=== PATIENT | female | born 1955 | race Hispanic/Latino ===

== ENCOUNTER → 2018-07-12 | Day surgery (SDC) | payer MEDICARE ==
[2018-07-06 15:09] LABS: BASOPHILS # (AUTO) 0.1 (0.0-0.1); BASOPHILS % 0.8 % (0.0-1.0); EOSINOPHILS # (AUTO) 0.2 (0.0-0.4); EOSINOPHILS % 3.4 % (0.0-6.0); HEMATOCRIT 37.9 % (34.2-44.1); HEMOGLOBIN 12.6 g/dL (12.0-16.0); LYMPHOCYTES # (AUTO) 1.9 (1.0-3.2); LYMPHOCYTES % 29.9 % (18.0-39.1); MEAN CORPUSCULAR HEMOGLOBIN 28.5 pg (28-32); MEAN CORPUSCULAR HGB CONC 33.2 g/dL (31-35); MEAN CORPUSCULAR VOLUME 85.7 fL (81-99); MONOCYTES # (AUTO) 0.6 (0.2-0.8); MONOCYTES % 8.8 % (4.4-11.3); NEUTROPHILS # (AUTO) 3.6 (2.1-6.9); NEUTROPHILS % 56.9 % (38.7-80.0); PLATELET COUNT 243 x10e3/uL (140-360); RED BLOOD COUNT 4.42 x10e6/uL (3.6-5.1)
[~2018-07-12] MED LIST: ALBUTEROL S5 MG/1 ML INH; ALENDRONATE SOD70 MG PO; ASPIR 8181 MG PO; FENTANYL CITRATE/PF 100MCG/2 ML INJ ONE; LOSARTAN POTAS100 MG PO; MIDAZOLAM HCL 2 MG/2 ML VIAL ONE; MONTELUKAST SOD10 MG PO; NAPROXEN500 M1 PO; PROPOFOL IV EMULSION 10 MG/ML 20 ML VIAL IV ONE; SERTRALINE HCL100 MG PO
--- OUTSIDE RECORDS SUMMARY | 2018-07-12 09:28 | XMS REPORT | Clinical Summary ---
Author Author [place] [facility] Organization [place] [facility] Address Unknown Phone Unavailable Care Team Providers Care Book Author Name Role Phone Simon Byrd MD PCP Allergies Comments Active Allergy Reactions Severity Noted Date Clarithromycin Rash Low 12/04/2017 Chocolate Flavor Rash Low 12/04/2017 Penicillins Rash Low 12/04/2017 Pork Derived (Porcine) Rash Low 12/04/2017 Sulfa (Sulfonamide Rash Low 12/04/2017 Antibiotics) Medications End Date Status Medication Sig Dispensed Refills Start Date Active donepezil (ARICEPT) 10 MG Take 10 mg by 0 tablet mouth nightly. Active naproxen (NAPROSYN) 500 Take 500 mg 0 MG tablet by mouth 2 (two) times a day with meals. Active aspirin (ECOTRIN) 81 MG Take 81 mg by 0 enteric coated tablet mouth daily. Active losartan (COZAAR) 50 MG Take 50 mg by 0 tablet mouth daily. Active montelukast (SINGULAIR) Take 10 mg by 0 10 mg tablet mouth nightly. Active sertraline (ZOLOFT) 100 Take 100 mg 0 MG tablet by mouth daily. 12/12/2017 ciprofloxacin (CIPRO) 500 Take 1 tablet 10 tablet 0 12/07/201 MG tablet (500 mg 8 total) by mouth 2 (two) times a day for 5 days. Active Problems Problem Noted Date Numbness 12/05/2017 Encounters Care Team Description Date Type Specialty Priscilla Wilson RN 12/07/2017 Patient Quality Outreach Blanco Brothers MD Bavare, Arusha Amod, MD Berberian, Esteban N., MD Numbness (Primary Dx); Chest pain, unspecified type 12/04/2017 Emergency General Internal Medicine - 12/07/2017 after 07/11/2017 Social History Date Tobacco Use Types Packs/Day Years Used Never Smoker Smokeless Tobacco: Never Used Alcohol Use Drinks/Week oz/Week Comments No Sex Assigned at Date Recorded Not on file Industry Job Start Date Occupation Not on file Not on file Not on file Travel End Travel History Travel Start No recent travel history available. Last Filed Vital Signs Time Taken Vital Sign Reading 12/07/2017 11:13 AM CDT Blood Pressure 122/80 12/07/2017 11:13 AM CDT Pulse 69 12/07/2017 11:13 AM CDT Temperature 36.4 C (97.5 F) 12/07/2017 11:13 AM CDT Respiratory Rate 18 12/07/2017 11:13 AM CDT Oxygen Saturation 94% - Inhaled Oxygen - Concentration 12/04/2017 9:07 PM CDT Weight 77.1 kg (170 lb) 12/04/2017 9:07 PM CDT Height 167.6 cm (5' 6") 12/04/2017 9:07 PM CDT Body Mass Index 27.44 Plan of Treatment Health Maintenance Due Date Last Done Comments CERVICAL CANCER SCREENING 1976 BREAST CANCER SCREENING 2005 COLON CANCER SCREENING 2005 SHINGLES VACCINES (1 of 2005 2) INFLUENZA VACCINE 01/10/2018 02/20/2017 Procedures Comments Procedure Name Priority Date/Time Associated Diagnosis MRI LUMBAR SPINE WO Routine 12/06/2017 CONTRAST 9:47 AM CDT MRI THORACIC SPINE WO Routine 12/06/2017 CONTRAST 9:25 AM CDT TROPONIN Timed 12/05/2017 1:12 PM CDT MRI IAC W WO CONTRAST Routine 12/05/2017 1:05 PM CDT MRI CERVICAL SPINE WO Routine 12/05/2017 CONTRAST 12:14 PM CDT ECG 12-LEAD Routine 12/05/2017 9:57 AM CDT TROPONIN Timed 12/05/2017 9:26 AM CDT TROPONIN Timed 12/05/2017 4:58 AM CDT ECG 12-LEAD Routine 12/05/2017 4:[address] ANGIOGRAM CHEST STAT 12/05/2017 ABDOMEN PELVIS W AND OR 1:07 AM CDT WITHOUT CONTRAST CT HEAD WO CONTRAST STAT 12/05/2017 12:49 AM CDT B NATRIURETIC PEPTIDE STAT 12/04/2017 11:30 PM CDT ZZESTIMATED GFR STAT 12/04/2017 11:30 PM CDT TROPONIN STAT 12/04/2017 11:30 PM CDT BASIC METABOLIC PANEL STAT 12/04/2017 11:30 PM CDT HC COMPLETE BLD COUNT STAT 12/04/2017 W/AUTO DIFF 11:30 PM CDT XR CHEST 1 VW PORTABLE STAT 12/04/2017 10:09 PM CDT ECG ED PRELIMINARY Routine 12/04/2017 INTERPRETATION 9:37 PM CDT ECG 12-LEAD STAT 12/04/2017 9:10 PM CDT after 07/11/2017 Results * MRI Lumbar Spine Wo Contrast (12/06/2017 9:47 AM CDT) Narrative Performed At EXAMINATION: MRI LUMBAR SPINE WO CONTRAST [facility] CLINICAL HISTORY: Lower back pain COMPARISON:None TECHNIQUE: Multiplanar multisequence noncontrast enhanced examination was performed of the Lumbar spine. FINDINGS: There is decreased T2 signal intensity in the lumbar discs from L2-3 to L5-S1. There are degenerative changes of the upper sacroiliac joints. L5-S1: There is severe disc space narrowing with surrounding endplate degenerative change. There is minimal dorsal spondylosis. There are facet hypertrophic changes.There is no significant central canal stenosis. There is severe right and mild to moderate left foramen stenosis with asymmetric spondylosis in the inferior right foramen and extraforaminal region. There is extraforaminal spondylosis near the nerves greater on the right. There is a small fluid signal intensity structure on the sagittal T2 images in the region of the right S1 nerve root in the proximal foramen, consistent with a perineural cyst or diverticulum, meningocele or pseudomeningocele. L4-5: There is severe disc space narrowing with surrounding endplate degenerative change and Schmorl's nodes. There is dorsal spondylosis with minimal narrowing of the anterior canal. There is facet hypertrophy greater on the left with left posterolateral indentation on the subarachnoid space and mild mass effect on the posterior left nerve roots. There is moderate foramen stenosis. L3-4: There is moderate posterior disc space narrowing. There is minimal retrolisthesis with uncovered disc and bulge indenting the anterior subarachnoid space. There are facet hypertrophic changes. There is no significant central canal stenosis. There is mild posterolateral indentation on the subarachnoid space, greater on the left. There is mild foramen narrowing. L2-3:There is moderate disc space narrowing with surrounding endplate degenerative changes and multiple Schmorl's nodes. There is an incidental hemangioma in the left L3 vertebral body. There is facet hypertrophy. There is no significant central canal stenosis. There is mild foramen stenosis in part congenital in nature. L1-2: There is greater posterior disc space narrowing.There is mild bulge and facet hypertrophy. The distal cord ends at the L1-2 level and is grossly unremarkable on the sagittal images. There is nonspecific mild dilatation of the right renal pelvis and upper ureter without definite focal obstruction seen on this exam. The study was not performed for proper imaging of the soft tissue structures in the abdomen and pelvis. IMPRESSION: Degenerative changes with foramen stenosis most prominent on the right at the L5-S1 level. Extraforaminal spondylosis extending into both nerves at the L5-S1 level, greater on the right. Degenerative changes of the sacroiliac joints. Small perineural cyst or diverticulum, meningocele or pseudomeningocele in the region of the right S1 nerve root in the proximal foramen seen only on the sagittal T2 images. [id number] Procedure Note Hm Interface, Radiology Results Incoming - 12/06/2017 10:22 AM CDT EXAMINATION: MRI LUMBAR SPINE WO CONTRAST CLINICAL HISTORY: Lower back pain COMPARISON: None TECHNIQUE: Multiplanar multisequence noncontrast enhanced examination was performed of the Lumbar spine. FINDINGS: There is decreased T2 signal intensity in the lumbar discs from L2-3 to L5-S1. There are degenerative changes of the upper sacroiliac joints. L5-S1: There is severe disc space narrowing with surrounding endplate degenerative change. There is minimal dorsal spondylosis. There are facet hypertrophic changes. There is no significant central canal stenosis. There is severe right and mild to moderate left foramen stenosis with asymmetric spondylosis in the inferior right foramen and extraforaminal region. There is extraforaminal spondylosis near the nerves greater on the right. There is a small fluid signal intensity structure on the sagittal T2 images in the region of the right S1 nerve root in the proximal foramen, consistent with a perineural cyst or diverticulum, meningocele or pseudomeningocele. L4-5: There is severe disc space narrowing with surrounding endplate degenerative change and Schmorl's nodes. There is dorsal spondylosis with minimal narrowing of the anterior canal. There is facet hypertrophy greater on the left with left posterolateral indentation on the subarachnoid space and mild mass effect on the posterior left nerve roots. There is moderate foramen stenosis. L3-4: There is moderate posterior disc space narrowing. There is minimal retrolisthesis with uncovered disc and bulge indenting the anterior subarachnoid space. There are facet hypertrophic changes. There is no significant central canal stenosis. There is mild posterolateral indentation on the subarachnoid space, greater on the left. There is mild foramen narrowing. L2-3: There is moderate disc space narrowing with surrounding endplate degenerative changes and multiple Schmorl's nodes. There is an incidental hemangioma in the left L3 vertebral body. There is facet hypertrophy. There is no significant central canal stenosis. There is mild foramen stenosis in part congenital in nature. L1-2: There is greater posterior disc space narrowing. There is mild bulge and facet hypertrophy. The distal cord ends at the L1-2 level and is grossly unremarkable on the sagittal images. There is nonspecific mild dilatation of the right renal pelvis and upper ureter without definite focal obstruction seen on this exam. The study was not performed for proper imaging of the soft tissue structures in the abdomen and pelvis. IMPRESSION: Degenerative changes with foramen stenosis most prominent on the right at the L5-S1 level. Extraforaminal spondylosis extending into both nerves at the L5-S1 level, greater on the right. Degenerative changes of the sacroiliac joints. Small perineural cyst or diverticulum, meningocele or pseudomeningocele in the region of the right S1 nerve root in the proximal foramen seen only on the sagittal T2 images. [id number] Performing Organization Address City/State/Zipcode Phone Number [facility] [address] [place] [address] * MRI Thoracic Spine Wo Contrast (12/06/2017 9:25 AM CDT) Narrative Performed At EXAMINATION:MRI THORACIC SPINE WO CONTRAST [facility] CLINICAL HISTORY:Ataxia COMPARISON:None. Sagittal and axial images of the thoracic spine were obtained. FINDINGS: There is mild endplate Modic type I edema changes noted at T6-T7 and T7-T8 noted anteriorly. There is no acute wedging deformity or fracture. There is no spondylolisthesis. A Schmorl's node mild edema is noted anteriorly at T12 as well. No aggressive osseous lesions identified. The spinal cord is intact. It has normal morphology without expansion or compression. There is no cord signal change identified. There is no canal narrowing. There is no posterior spondylosis or canal stenosis. Aorta is nonaneurysmal. A small 12 mm cyst is noted in the posterior inferior aspect of the liver. Sagittal imaging shows preservation of the perineural fat throughout the thoracic spine without foraminal stenosis. IMPRESSION: There are mild endplate changes of the thoracic spine from disc disease without significant posterior spondylosis or stenosis. The canal and foramina remain widely patent. Thoracic alignment is normal without acute fracture or spondylolisthesis. No abnormality identified to explain patient's ataxia. [id number] Procedure Note Hm Interface, Radiology Results [facility] - 12/06/2017 10:10 AM CDT EXAMINATION: MRI THORACIC SPINE WO CONTRAST CLINICAL HISTORY: Ataxia COMPARISON: None. Sagittal and axial images of the thoracic spine were obtained. FINDINGS: There is mild endplate Modic type I edema changes noted at T6-T7 and T7-T8 noted anteriorly. There is no acute wedging deformity or fracture. There is no spondylolisthesis. A Schmorl's node mild edema is noted anteriorly at T12 as well. No aggressive osseous lesions identified. The spinal cord is intact. It has normal morphology without expansion or compression. There is no cord signal change identified. There is no canal narrowing. There is no posterior spondylosis or canal stenosis. Aorta is nonaneurysmal. A small 12 mm cyst is noted in the posterior inferior aspect of the liver. Sagittal imaging shows preservation of the perineural fat throughout the thoracic spine without foraminal stenosis. IMPRESSION: There are mild endplate changes of the thoracic spine from disc disease without significant posterior spondylosis or stenosis. The canal and foramina remain widely patent. Thoracic alignment is normal without acute fracture or spondylolisthesis. No abnormality identified to explain patient's ataxia. [id number] Performing Organization Address City/State/Zipcode Phone Number [facility] [address] [place] [address] * Troponin (12/05/2017 1:12 PM CDT) Only the most recent of 4 results within the time period is included. Troponin <0.30 0.00 - 0.30 ng/mL [facility] OF Comment: PATHOLOGY AND 0.11 - 1.49 GENOMIC MEDICINE ng/mlMay indicate increased risk of acute coronary syndrome. >=1.5 ng/ml Consistent with acute myocardial infarction. The diagnostic value of a single normal or non-diagnostic result is questionable.Serial samples at 2-6 hour intervals are required to rule out acute myocardial injury. Specimen Plasma specimen Performing Organization Address City/State/Zipcode Phone Number [facility] OF [address] [place] [address] PATHOLOGY AND GENOMIC MEDICINE * MRI IAC W Wo Contrast (12/05/2017 1:05 PM CDT) Narrative Performed At [facility] EXAMINATION: MRI IAC W WO CONTRAST CLINICAL HISTORY: Vertigo COMPARISON:CT head same date. TECHNIQUE: Multiplanar and multisequence MRI imaging of the brain and internal auditory canals was obtained with and without contrast. FINDINGS: No evidence of acute intracranial hemorrhage, mass, mass effect, acute infarct or midline shift. High-resolution imaging of the internal auditory canals demonstrates no evidence of mass, abnormal signal, or pathologic enhancement. Unremarkable MRI appearance of the inner ear structures. Ventricles and sulci are normal in appearance for age. Few nonspecific subcortical and periventricular white matter T2 FLAIR hyperintensities, within normal limits for age. No abnormal intracranial enhancement.Basal cisterns are clear. Major intracranial flow voids are maintained. Orbits are normal in appearance. Small bilateral mastoid effusions. Minimal sinus inflammatory changes. IMPRESSION: 1. No acute intracranial abnormality. 2. Normal appearance of the internal auditory canals. [id number] Procedure Note Interface, Radiology Results Incoming - 12/05/2017 1:21 PM CDT EXAMINATION: MRI IAC W WO CONTRAST CLINICAL HISTORY: Vertigo COMPARISON: CT head same date. TECHNIQUE: Multiplanar and multisequence MRI imaging of the brain and internal auditory canals was obtained with and without contrast. FINDINGS: No evidence of acute intracranial hemorrhage, mass, mass effect, acute infarct or midline shift. High-resolution imaging of the internal auditory canals demonstrates no evidence of mass, abnormal signal, or pathologic enhancement. Unremarkable MRI appearance of the inner ear structures. Ventricles and sulci are normal in appearance for age. Few nonspecific subcortical and periventricular white matter T2 FLAIR hyperintensities, within normal limits for age. No abnormal intracranial enhancement. Basal cisterns are clear. Major intracranial flow voids are maintained. Orbits are normal in appearance. Small bilateral mastoid effusions. Minimal sinus inflammatory changes. IMPRESSION: 1. No acute intracranial abnormality. 2. Normal appearance of the internal auditory canals. [id number] Performing Organization Address City/State/Zipcode Phone Number [facility] [address] [place] [address] * MRI Cervical Spine Wo Contrast (12/05/2017 12:14 PM CDT) Narrative Performed At EXAMINATION: MRI CERVICAL SPINE WO CONTRAST [facility] CLINICAL HISTORY: C-spine stenosis COMPARISON:None TECHNIQUE: Multiplanar multisequence noncontrast enhanced examination was performed of the cervical spine. FINDINGS: No fracture. 1 to 2 mm anterolisthesis C7 on T1 and T1 on T2, degenerative. No suspicious osseous lesion. Severe disc height loss C5-6 and C6-7, with moderate disc height loss and C3-4 and C4-5, with and Schmorl's nodes and small endplate osteophytes. The cervicomedullary junction is normal in appearance. No spinal cord signal abnormality. No prevertebral edema or neck mass identified. Axial images through the disc spaces demonstrate the following: C1-C2: Degenerative changes atlantodental articulation without significant spinal canal stenosis. C2-C3: Disc desiccation. No significant spinal canal or neural foraminal stenosis. C3-C4: Mild right and moderate to severe left neural foraminal stenosis secondary to uncovertebral and facet arthropathy. Mild spinal canal stenosis secondary to uncovertebral osteophytes and minimal disc bulge. C4-C5: Mild right neural foraminal stenosis secondary to uncovertebral and facet arthropathy. No significant left neural foraminal stenosis. Mild spinal canal stenosis secondary to uncovertebral osteophytes and minimal disc bulge. C5-C6: Severe left neural foraminal stenosis secondary to uncovertebral and facet arthropathy. No significant right neural foraminal stenosis. Mild spinal canal stenosis secondary to uncovertebral osteophytes. C6-C7: Severe left and moderate right neural foraminal stenosis secondary to uncovertebral and facet arthropathy. There is mild spinal canal stenosis secondary to uncovertebral osteophytes. C7-T1: Mild to moderate facet arthropathy without significant spinal canal or neural foraminal stenosis. IMPRESSION: 1. Multilevel mild spinal canal and moderate or severe neural foraminal stenosis, notably at C3-4, C5-6, and C6-7. Additional multilevel degenerative changes as above. [id number] Procedure Note [facility], Radiology Results Incoming - 12/05/2017 1:50 PM CDT EXAMINATION: MRI CERVICAL SPINE WO CONTRAST CLINICAL HISTORY: C-spine stenosis COMPARISON: None TECHNIQUE: Multiplanar multisequence noncontrast enhanced examination was performed of the cervical spine. FINDINGS: No fracture. 1 to 2 mm anterolisthesis C7 on T1 and T1 on T2, degenerative. No suspicious osseous lesion. Severe disc height loss C5-6 and C6- 7, with moderate disc height loss and C3-4 and C4-5, with and Schmorl's nodes and small endplate osteophytes. The cervicomedullary junction is normal in appearance. No spinal cord signal abnormality. No prevertebral edema or neck mass identified. Axial images through the disc spaces demonstrate the following: C1-C2: Degenerative changes atlantodental articulation without significant spinal canal stenosis. C2-C3: Disc desiccation. No significant spinal canal or neural foraminal stenosis. C3-C4: Mild right and moderate to severe left neural foraminal stenosis secondary to uncovertebral and facet arthropathy. Mild spinal canal stenosis secondary to uncovertebral osteophytes and minimal disc bulge. C4-C5: Mild right neural foraminal stenosis secondary to uncovertebral and facet arthropathy. No significant left neural foraminal stenosis. Mild spinal canal stenosis secondary to uncovertebral osteophytes and minimal disc bulge. C5-C6: Severe left neural foraminal stenosis secondary to uncovertebral and facet arthropathy. No significant right neural foraminal stenosis. Mild spinal canal stenosis secondary to uncovertebral osteophytes. C6-C7: Severe left and moderate right neural foraminal stenosis secondary to uncovertebral and facet arthropathy. There is mild spinal canal stenosis secondary to uncovertebral osteophytes. C7-T1: Mild to moderate facet arthropathy without significant spinal canal or neural foraminal stenosis. IMPRESSION: 1. Multilevel mild spinal canal and moderate or severe neural foraminal stenosis, notably at C3-4, C5-6, and C6-7. Additional multilevel degenerative changes as above. [facility]-[id number] Performing Organization Address [facility] Phone Number [facility] [address] [place] [address] * ECG 12 lead (12/05/2017 9:57 AM CDT) Only the most recent of 3 results within the time period is included. Ventricular rate 55 [facility] Atrial rate 55 [facility] ID interval 158 [facility] QRSD interval 90 [facility] QT interval 446 [facility] QTC interval 426 [facility] P axis 1 41 [facility] QRS axis 1 46 [facility] T wave axis 46 [facility] EKG impression Sinus bradycardia-Otherwise [facility] normal ECG-In automated comparison with ECG of 05-DEC-2017 04:06,-No significant change was found- Performing Organization Address [facility] Phone Number [facility] [address] [place] [address] * CT Angiogram Chest W Contrast Abdomen W Contrast Pelvis W Contrast (12/05/2017 1:07 AM CDT) Narrative Performed At EXAMINATION:CT ANGIOGRAM CHEST ABDOMEN PELVIS W AND OR WITHOUT CONTRAST [facility] CLINICAL HISTORY:chest pain with L side numbness eval dissection TECHNIQUE: Multiple CT angiographic images of the chest, abdomen, and pelvis were obtained during intravenous administration of contrast. Multiple computerized reformatted images as well as 3-D volume rendered images were also obtained. CT scans are performed using radiation dose reduction techniques (iterative reconstruction and/or automated exposure control). Technical factors are evaluated and adjusted to ensure appropriate moderation of exposure. Automated dose management technology is applied to adjust radiation exposure while achieving a diagnostic quality image. COMPARISON:None. FINDINGS: CTA: No aortic aneurysm or dissection. Ascending aorta measures 3.4 cm in diameter. Mid aortic arch measures 2.7 cm in diameter. Proximal descending thoracic aorta measures 2.5 cm. Distal descending thoracic aorta measures 2.4 cm. Aorta measures 2.5 cm at the level of the diaphragmatic hiatus. Abdominal aorta measures 1.9 cm at the level of the main renal arteries. Distal abdominal aorta measures 1.4 cm. Right common iliac artery measures 1.0 cm. Left common iliac artery measures 0.9 cm. Left-sided aortic arch with normal branching pattern. [place] of the supra aortic vessels appear widely patent. [place] of the celiac axis, superior mesenteric artery, bilateral main renal arteries, and inferior mesenteric artery are widely patent. Single bilateral main renal arteries are noted. Mild calcific atherosclerosis of the abdominal aorta. Main pulmonary artery measures 3.0 cm in diameter. No pulmonary emboli within proximal pulmonary arteries. CHEST: Lungs and large airways: Dependent subsegmental atelectasis/scarring. No focal or confluent airspace consolidation. Pleura:No pleural effusion, pleural thickening, or pneumothorax. Heart and pericardium:Heart size is normal. No pericardial effusion. Mediastinum and marizol:No mass or hematoma. Lymph nodes:No pathological adenopathy in the marizol, axilla or mediastinum. Chest wall: Bilateral breast implants are present. Bones:Severe degenerative changes at the right glenohumeral joint. Mild degenerative changes of the thoracic spine. ABDOMEN/PELVIS: Liver:Multiple cysts measure up to 2.4 cm in the left hepatic lobe. Gallbladder and biliary:Gallbladder is unremarkable. Common bile duct is not dilated. Pancreas:Normal. Spleen:Normal. Gastrointestinal:Large and small bowel are normal in caliber. Appendix is visualized and appears normal. Adrenals:Normal. Kidneys and ureters:0.9 cm cyst at the midpole of the left kidney. [No follow-up recommended unless clinically warranted.] No mass or hydronephrosis. Urinary bladder:Normal. Lymph nodes:No enlarged lymph nodes in the abdomen or pelvis. Peritoneum:No ascites or free air. Reproductive organs:Uterus is absent. Unremarkable adnexae. Abdominal wall: Gluteal subcutaneous injection granulomas. Bones:Moderate degenerative changes. IMPRESSION: 1. Negative CTA for aortic dissection, aneurysm, or other acute aortic pathology. 2. Incidental findings as above. [facility]-[id number] Procedure Note [facility], Radiology Results Incoming - 12/05/2017 1:24 AM CDT EXAMINATION: CT ANGIOGRAM CHEST ABDOMEN PELVIS W AND OR WITHOUT CONTRAST CLINICAL HISTORY: chest pain with L side numbness eval dissection TECHNIQUE: Multiple CT angiographic images of the chest, abdomen, and pelvis were obtained during intravenous administration of contrast. Multiple computerized reformatted images as well as 3-D volume rendered images were also obtained. CT scans are performed using radiation dose reduction techniques (iterative reconstruction and/or automated exposure control). Technical factors are evaluated and adjusted to ensure appropriate moderation of exposure. Automated dose management technology is applied to adjust radiation exposure while achieving a diagnostic quality image. COMPARISON: None. FINDINGS: CTA: No aortic aneurysm or dissection. Ascending aorta measures 3.4 cm in diameter. Mid aortic arch measures 2.7 cm in diameter. Proximal descending thoracic aorta measures 2.5 cm. Distal descending thoracic aorta measures 2.4 cm. Aorta measures 2.5 cm at the level of the diaphragmatic hiatus. Abdominal aorta measures 1.9 cm at the level of the main renal arteries. Distal abdominal aorta measures 1.4 cm. Right common iliac artery measures 1.0 cm. Left common iliac artery measures 0.9 cm. Left-sided aortic arch with normal branching pattern. [place] of the supra aortic vessels appear widely patent. [place] of the celiac axis, superior mesenteric artery, bilateral main renal arteries, and inferior mesenteric artery are widely patent. Single bilateral main renal arteries are noted. Mild calcific atherosclerosis of the abdominal aorta. Main pulmonary artery measures 3.0 cm in diameter. No pulmonary emboli within proximal pulmonary arteries. CHEST: Lungs and large airways: Dependent subsegmental atelectasis/scarring. No focal or confluent airspace consolidation. Pleura: No pleural effusion, pleural thickening, or pneumothorax. Heart and pericardium: Heart size is normal. No pericardial effusion. Mediastinum and marizol: No mass or hematoma. Lymph nodes: No pathological adenopathy in the marizol, axilla or mediastinum. Chest wall: Bilateral breast implants are present. Bones: Severe degenerative changes at the right glenohumeral joint. Mild degenerative changes of the thoracic spine. ABDOMEN/PELVIS: Liver: Multiple cysts measure up to 2.4 cm in the left hepatic lobe. Gallbladder and biliary: Gallbladder is unremarkable. Common bile duct is not dilated. Pancreas: Normal. Spleen: Normal. Gastrointestinal: Large and small bowel are normal in caliber. Appendix is visualized and appears normal. Adrenals: Normal. Kidneys and ureters: 0.9 cm cyst at the midpole of the left kidney. [No follow- up recommended unless clinically warranted.] No mass or hydronephrosis. Urinary bladder: Normal. Lymph nodes: No enlarged lymph nodes in the abdomen or pelvis. Peritoneum: No ascites or free air. Reproductive organs: Uterus is absent. Unremarkable adnexae. Abdominal wall: Gluteal subcutaneous injection granulomas. Bones: Moderate degenerative changes. IMPRESSION: 1. Negative CTA for aortic dissection, aneurysm, or other acute aortic pathology. 2. Incidental findings as above. [facility]-[id number] Performing Organization Address City/State/Zipcode Phone Number [facility] [address] [place] [address] * CT Head Wo Contrast (12/05/2017 12:49 AM CDT) Narrative Performed At EXAM: [facility]ICAL [facility]: L side numbness x 24 hours TECHNIQUE: Noncontrast enhanced images of the brain were obtained from the skull base to the vertex. Both soft tissue and bone reconstruction algorithms were performed. CT scans are performed using radiation dose reduction techniques (iterative reconstruction and/or automated exposure control). Technical factors are evaluated and adjusted to ensure appropriate moderation of exposure. Automated dose management technology is applied to adjust radiation exposure while achieving a diagnostic quality image. COMPARISON:None. FINDINGS: The veloz-white matter differentiation is preserved and without evidence of acute territorial infarction. There is no evidence for acute intracranial hemorrhage, mass, mass effect, hydrocephalus, or extra-axial fluid collection. Orbits are unremarkable.Paranasal sinuses are clear.Mastoid air cells are normally pneumatized.Osseous structures are intact. IMPRESSION: No CT evidence for acute intracranial abnormality. [facility]-[id number] Procedure Note Interface, Radiology Results Incoming - 12/05/2017 12:57 AM CDT EXAM: CT HEAD WO CONTRAST CLINICAL HISTORY: L side numbness x 24 hours TECHNIQUE: Noncontrast enhanced images of the brain were obtained from the skull base to the vertex. Both soft tissue and bone reconstruction algorithms were performed. CT scans are performed using radiation dose reduction techniques (iterative reconstruction and/or automated exposure control). Technical factors are evaluated and adjusted to ensure appropriate moderation of exposure. Automated dose management technology is applied to adjust radiation exposure while achieving a diagnostic quality image. COMPARISON: None. FINDINGS: The veloz-white matter differentiation is preserved and without evidence of acute territorial infarction. There is no evidence for acute intracranial hemorrhage, mass, mass effect, hydrocephalus, or extra-axial fluid collection. Orbits are unremarkable. Paranasal sinuses are clear. Mastoid air cells are normally pneumatized. Osseous structures are intact. IMPRESSION: No CT evidence for acute intracranial abnormality. [facility]-[id number] Performing Organization Address City/State/Zipcode Phone Number [facility] [address] [place] [address] * Estimated GFR (12/04/2017 11:30 PM CDT) GFR Non Af Amer >90 mL/min/1.73 m2 [facility] DEPART[place] OF PATHOLOGY AND GENOMIC MEDICINE GFR Af Amer >90 mL/min/1.73 m2 [facility] DEPARTMENT OF Comment: PATHOLOGY AND Chronic kidney disease: <60 GENOMIC MEDICINE mL/min/1.73m2 Kidney failure: <15 mL/min/1.73m2 The estimated GFR is calculated from the IDMS-traceable Modification of Diet in Renal Disease Equation. The accuracy of the calculation is poor when the creatinine is normal. Calculated values >90 mL/min/1.73m2 are not reported. This equation has not been validated in children (<18 years), women, the elderly (>70 years), or ethnic groups other than Caucasians and Americans. Specimen Plasma specimen Performing Organization Address City/[facility]/Zipcode Phone Number [facility] [address] [place] [address] PATHOLOGY AND GENOMIC MEDICINE * CBC with platelet and differential (12/04/2017 11:30 PM CDT) WBC 7.6 4.2 - 11.0 k/uL [facility] DEPARTMENT OF PATHOLOGY AND GENOMIC MEDICINE RBC 4.02 (L) 4.04 - 5.86 m/uL [facility] DEPARTMENT OF PATHOLOGY AND GENOMIC MEDICINE HGB 11.1 (L) 11.5 - 15.3 g/dL [facility] DEPARTMENT OF PATHOLOGY AND GENOMIC MEDICINE HCT 35.3 34.0 - 45.0 % [facility] DEPARTMENT OF PATHOLOGY AND GENOMIC MEDICINE MCV 87.8 80.0 - 98.0 fL [facility] DEPARTMENT OF PATHOLOGY AND GENOMIC MEDICINE MCH 27.6 27.0 - 34.0 pg [facility] DEPARTMENT OF PATHOLOGY AND GENOMIC MEDICINE MCHC 31.4 (L) 31.5 - 36.5 g/dL [facility] DEPARTMENT OF PATHOLOGY AND GENOMIC MEDICINE RDW - SD 46.4 37.0 - 51.0 fL [facility] DEPARTMENT OF PATHOLOGY AND GENOMIC MEDICINE MPV 11.4 (H) 7.4 - 10.4 fL [facility] DEPARTMENT OF PATHOLOGY AND GENOMIC MEDICINE Platelet count 214 150 - 400 k/uL [facility] DEPARTMENT OF PATHOLOGY AND GENOMIC MEDICINE Nucleated RBC 0.00 /100 WBC [facility] DEPARTMENT OF PATHOLOGY AND GENOMIC MEDICINE Neutrophils 63.3 36.0 - 66.0 % [facility] DEPARTMENT OF PATHOLOGY AND GENOMIC MEDICINE Lymphocytes 25.8 24.0 - 44.0 % [facility] DEPARTMENT OF PATHOLOGY AND GENOMIC MEDICINE Monocytes 7.4 (H) 0.0 - 6.0 % [facility] DEPARTMENT OF PATHOLOGY AND GENOMIC MEDICINE Eosinophils 2.8 0.0 - 6.0 % [facility] DEPARTMENT OF PATHOLOGY AND GENOMIC MEDICINE Basophils 0.4 0.0 - 1.2 % [facility] DEPARTMENT OF PATHOLOGY AND GENOMIC MEDICINE Immature granulocytes 0.3 0.0 - 1.0 % [facility] DEPARTMENT OF PATHOLOGY AND GENOMIC MEDICINE Specimen Blood Performing Organization Address City/[facility] [place] [address] PATHOLOGY AND GENOMIC MEDICINE * B natriuretic peptide (12/04/2017 11:30 PM CDT) BNP 56 0 - 100 pg/mL [facility] DEPARTMENT OF PATHOLOGY AND GENOMIC MEDICINE Specimen Blood Performing Organization Address City/[facility] [place] [address] PATHOLOGY AND [employer] MEDICINE * Basic metabolic panel (12/04/2017 11:30 PM CDT) Sodium 142 135 - 150 mEq/L [facility] DEPARTMENT OF PATHOLOGY AND GENOMIC MEDICINE Potassium 4.1 3.5 - 5.0 mEq/L [facility] DEPARTMENT OF PATHOLOGY AND GENOMIC MEDICINE Chloride 105 98 - 112 mEq/L [facility] DEPARTMENT OF PATHOLOGY AND GENOMIC MEDICINE CO2 26 24 - 31 mmol/L [facility] OF PATHOLOGY AND GENOMIC MEDICINE Anion gap 11@ANIO 7 - 15 mEq/L [facility] DEPARTMENT OF PATHOLOGY AND GENOMIC MEDICINE BUN 11 7 - 18 mg/dL [facility] DEPARTMENT OF PATHOLOGY AND GENOMIC MEDICINE Creatinine 0.60 0.50 - 0.90 mg/dL [facility] DEPARTMENT OF PATHOLOGY AND GENOMIC MEDICINE Glucose 104 (H) 65 - 100 mg/dL [facility] DEPARTMENT OF PATHOLOGY AND GENOMIC MEDICINE Calcium 9.3 8.8 - 10.2 mg/dL [facility] DEPARTMENT OF PATHOLOGY AND GENOMIC MEDICINE Specimen Plasma specimen Performing Organization Address [facility] [place] [address] PATHOLOGY AND GENOMIC MEDICINE * XR Chest 1 Vw Portable (12/04/2017 10:09 PM CDT) Narrative Performed At Examination: XR CHEST 1 VW PORTABLE [facility] Clinical history: Chest Pain Comparison: None Impression: 1. The heart and pulmonary vasculature are within normal limits. 2. No infiltrate or effusion is demonstrated. The lungs are hyperinflated. 3. There is no acute osseous pathology. Sclerosis and degeneration about the right glenohumeral joint is incompletely imaged. Please correlate with the patient's history. 4. If suspicion persists, follow-up nonportable PA and lateral imaging may be helpful. [facility]-[id number] Procedure Note Hm Interface, Radiology Results Incoming - 12/04/2017 10:15 PM CDT Examination: XR CHEST 1 VW PORTABLE Clinical history: Chest Pain Comparison: None Impression: 1. The heart and pulmonary vasculature are within normal limits. 2. No infiltrate or effusion is demonstrated. The lungs are hyperinflated. 3. There is no acute osseous pathology. Sclerosis and degeneration about the right glenohumeral joint is incompletely imaged. Please correlate with the patient's history. 4. If suspicion persists, follow-up nonportable PA and lateral imaging may be helpful. [facility]-[id number] Performing Organization Address City/State/Zipcode Phone Number [facility] [address] [place] [address] * ECG ED Preliminary Interpretation - NOT AN ORDER (12/04/2017 9:37 PM CDT) Narrative Performed At [employer] MD 12/05/20175:40 AM ECG ED Preliminary Interpretation - Not an Order Performed by: BLANCO BROTHERS Authorized by: BLANCO BROTHERS ECG reviewed by ED Physician in the absence of a engineer intern: yes Interpretation: Interpretation: normal Rate: ECG rate:60 ECG rate assessment: normal Rhythm: Rhythm: sinus rhythm Ectopy: Ectopy: none QRS: QRS axis:Normal QRS intervals:Normal Conduction: Conduction: normal ST segments: ST segments:Normal T waves: T waves: normal after 07/11/2017 Insurance Payer Benefit Subscriber ID Type Phone Address Plan / Group [employer] C[employer] xxxxxxxxxxx O [employer] HMO MCR ADV Advance Directives Patient has advance care planning documents, and code status on file. For more i nformation, please contact: Salvador Gramajo [address] [place] [address] Date Inactivated Comments Code Status Date Activated 12/07/2017 5:54 PM Full Code 12/05/2017 3:30 AM Code Status decision reached by: Patient
--- OUTSIDE RECORDS SUMMARY | 2018-07-12 09:28 | XMS REPORT | Summary of Care ---
Author Organization Unknown Address Unknown Phone Unavailable Encounter HQ Encntr_alias(FIN) [id number] Date(s): 09/26/14 - 09/26/14 [facility] Outpatient Imaging - [address] [phone] Discharge Disposition: Home Physician Attending: Leonardo Bello MD Vital Signs No data available for this section Problem List No data available for this section Allergies, Adverse Reactions, Alerts No data available for this section Medications No data available for this section Results No data available for this section Immunizations No data available for this section Procedures No data available for this section Social History No data available for this section Assessment and Plan No data available for this section
--- OUTSIDE RECORDS SUMMARY | 2018-07-12 09:28 | XMS REPORT | Continuity of Care Document ---
Author Author [facility] Interface Address Unknown Phone Unavailable Problems Problem Status Onset Date Classification Date Reported Comments Source K83.5 - BILIARY CYST Active 12/18/2017 ISIAH Aroda F HAND PAIN Active 05/30/2015 [facility] Discharge Diagnosis: Distal radius fracture, left 05/30/2015 06/02/2015 [facility] 789.04 - ABDMNAL PAIN LT Active 12/09/2011 [facility] Asthma Resolved Problem 06/02/2015 [facility] HTN - Hypertension Resolved Problem 06/02/2015 [facility] Medications Medication Details Route Status Patient Instructions Ordering Provider Order Date Source Acetaminophen 300 MG / Codeine Phosphate 30 MG Oral Tablet [Tylenol with Codeine #3] 1 - 2 tab, PO, Q4H, PRN Pain, X 3 day, # 20 tab, 0 Refill(s) Active 05/30/2015 [facility] tramadol hydrochloride 50 MG Oral Tablet 50 mg=1 tab, PO, BID, X 15 day, # 30 tab, 0 Refill(s) Active 05/30/2015 [facility] Acetaminophen 325 MG / Hydrocodone Bitartrate 5 MG Oral Tablet [[place] 5/325] 1 tab, Route: PO, Drug Form: TAB, Dosing Weight 73.636, kg, ONCE, STAT, Start date: 05/30/15 15:27:00, Stop date: 05/30/15 15:27:00Notes: (Same as: [place] 325/5) Do not exceed 4gm/day of acetaminophen. Inactive 05/30/2015 [facility] Ketamine 73.636 mg, 7.36 mL, Route: IVP, Drug form: INJ, ONCE, Dosing Weight 73.636, kg, Priority: STAT, Start date: 05/30/15 12:50:00, Stop date: 05/30/15 12:50:00Notes: Total Volume in 3mL syringe Stability 90 days Per state nursing law ketamine can only be given by a nurse if patient is intubated or being intubated (unless the nurse is a HOUSE WIRER HELPER). Inactive 05/30/2015 [facility] Propofol 73.636 mg, 7.36 mL, Route: IVP, Drug form: INJ, ONCE, Dosing Weight 73.636, kg, Priority: STAT, Start date: 05/30/15 12:50:00, Stop date: 05/30/15 12:50:00Notes: If Diprivan - change bottle & tubing every 12 hr Per state nursing law propofol can only be given by a nurse if patient is intubated or being intubated (unless the nurse is a HOUSE WIRER HELPER). Same as: Diprivan Inactive 05/30/2015 [facility] Morphine 6 mg, 0.6 mL, Route: IV, Drug form: SOLN, ONCE, Dosing Weight 73.636, kg, Start date: 05/30/15 12:14:00, Stop date: 05/30/15 12:14:00Notes: (Same as: MORPhine Sulfate) Inactive 05/30/2015 [facility] Morphine 6 mg, Route: IVP, Drug form: INJ, ONCE, Dosing Weight 73.636, kg, Priority: STAT, Start date: 05/30/15 11:57:00, Stop date: 05/30/15 11:57:00 Inactive 05/30/2015 [facility] Morphine 4 mg, 1 mL, Route: IVP, Drug form: INJ, ONCE, Dosing Weight 73.636, kg, Priority: STAT, Start date: 05/30/15 11:04:00, Stop date: 05/30/15 11:04:00Notes: (Same as:MORPhine Sulfate) Inactive 05/30/2015 [facility] Zofran 4 mg, 2 mL, Route: IVP, Drug form: INJ, ONCE, Dosing Weight 73.636, kg, Priority: STAT, Start date: 05/30/15 11:04:00, Stop date: 05/30/15 11:04:00Notes: (Same as: Zofran) MEDICATION WASTE Product Size: 4 mg Product Wasted: ___ mg Inactive 05/30/2015 [facility] Allergies, Adverse Reactions, Alerts Substance Category Reaction Severity Reaction type Status Date Reported Comments Source penicillins Assertion Drug allergy Active [facility] Vioxx Assertion Drug allergy Active [facility] Immunizations Immunization Date Given Site Status Last Updated Comments Source Results Order Name Results Value Reference Range Date Interpretation Comments Source Barium enema air contrast DX Barium enema air contrast DX Exam: Barium enema with air contrast Reason for Exam: K64.8 Other hemorrhoids - K63.5 Polyp of colon Comparison Exam: None Discussion: On chief quality officer view, there are no dilated loops of bowel or abnormal air-fluid level patterns. Air and barium were instilled into the rectum in a retrograde fashion up to the level of the cecum, as evidenced by visualization of the appendix. No obstructing or constricting lesions identified. No fixed intraluminal masses can be identified. Note that no definitive polyps can be identified. Fluoro time: 2 minutes, 48 seconds. Total exam LJD=7363 mGy-cm. Impression: 1. Unremarkable barium enema with air contrast exam. Note that no definitive polyps can be identified. 12/29/2017 - - Read by: Víctor Zaidi MD Dictated Date/time: 12/29/17 10:09 Electronically Signed by: Víctor Zaidi MD 12/29/17 10:15 FINAL REPORT [facility] ELECTROLYTES AGAP 10.3 meq/L 10.0 - 20.0 05/30/2015 [facility] ELECTROLYTES eGFR 99 mL/min/1.73m2 05/30/2015 Result Comment: The eGFR is calculated using the CKD-EPI formula. In most young, healthy individuals the eGFR will be >90 mL/min/1.73m2. The eGFR declines with age. An eGFR of 60-89 may be normal in some populations, particularly the elderly, for whom the CKD-EPI formula has not been extensively validated. Use of the eGFR is not recommended in the following populations: Individuals with unstable creatinine concentrations, including patients and those with serious co-morbid conditions. Patients with extremes in muscle mass or diet. The data above are obtained from the National Kidney Disease Education Program (NKDEP) which additionally recommends that when the eGFR is used in patients with extremes of body mass index for purposes of drug dosing, the eGFR should be multiplied by the estimated BMI. [facility] ELECTROLYTES BUN 16 mg/dL 7 - 22 05/30/2015 [facility] ELECTROLYTES Chloride Lvl 105 meq/L 95 - 109 05/30/2015 [facility] ELECTROLYTES Potassium Lvl 4.3 meq/L 3.5 - 5.1 05/30/2015 [facility] ELECTROLYTES Sodium Lvl 140 meq/L 135 - 145 05/30/2015 [facility] ELECTROLYTES Creatinine Lvl 0.61 mg/dL 0.50 - 1.40 05/30/2015 [facility] ELECTROLYTES Glucose Lvl 117 mg/dL 70 - 99 05/30/2015 [facility] ELECTROLYTES Calcium Lvl 8.5 mg/dL 8.5 - 10.5 05/30/2015 [facility] ELECTROLYTES CO2 29 meq/L 24 - 32 05/30/2015 [facility] HEMATOLOGY RDW 14.5 % 11.5 - 14.5 05/30/2015 [facility] HEMATOLOGY MCH 27.0 pg 27.0 - 31.0 05/30/2015 [facility] HEMATOLOGY MCV 84.7 fL 80.0 - 98.0 05/30/2015 [facility] HEMATOLOGY Hct 38.1 % 36.0 - 48.0 05/30/2015 [facility] HEMATOLOGY Hgb 12.1 g/dL 12.0 - 16.0 05/30/2015 [facility] HEMATOLOGY MCHC 31.9 g/dL 32.0 - 36.0 05/30/2015 [facility] HEMATOLOGY WBC 9.4 K/CMM 3.7 - 10.4 05/30/2015 [facility] HEMATOLOGY RBC 4.49 M/CMM 4.20 - 5.40 05/30/2015 [facility] HEMATOLOGY Platelet 249 K/CMM 133 - 450 05/30/2015 [facility] HEMATOLOGY MPV 9.2 fL 7.4 - 10.4 05/30/2015 [facility] HEMATOLOG[facility] Basophils 0.6 % 0.0 - 1.0 05/30/2015 [facility] HEMATOLOGY Segs-Bands # 6.7 K/CMM 1.5 - 8.1 05/30/2015 [facility] HEMATOLOGY Lymphocytes # 1.9 K/CMM 1.0 - 5.5 05/30/2015 [facility] HEMATOLOGY Monocytes 6.3 % 2.0 - 12.0 05/30/2015 [facility] HEMATOLOGY Lymphocytes 20.3 % 20.0 - 40.0 05/30/2015 [facility] HEMATOLOGY Eosinophils 1.7 % 0.0 - 4.0 05/30/2015 [facility] HEMATOLOGY Eosinophils # 0.2 K/CMM 0.0 - 0.5 05/30/2015 [facility] HEMATOLOGY Monocytes # 0.6 K/CMM 0.0 - 0.8 05/30/2015 [facility] HEMATOLOGY Basophils # 0.1 K/CMM 0.0 - 0.2 05/30/2015 [facility] HEMATOLOGY Segs 71.1 % 45.0 - 75.0 05/30/2015 [facility] Wrist 2 views DX Wrist 2 views DX NAME: KYRA KENNEDY: 1955 SEX: F Ordering Physician: Anthony Katz Wrist AP : May 30, 2015 03:55:00 PM. CLINICAL INDICATION: Post-Reduction films for a left wrist fracture COMPARISON: Left wrist x-rays dated 05/30/2015 at 11:38 a.m.. FINDINGS: Portable frontal and lateral x-rays of the left wrist were obtained following closed reduction and placement upper splint. The radiodense splint material years fine osseous detail. Note is again made of a mildly impacted distal radial intra-articular fracture and minimally displaced ulnar styloid process avulsion fracture. No other fracture or dislocation seen. If there is further concern, followup radiographs or MRI of the wrist may be performed for complete assessment. IMPRESSION: 1. Postreduction films demonstrating mildly impacted distal radial intra-articular fracture and minimally displaced comminuted ulnar styloid process avulsion fracture. SL: 05/30/2015 - - Read by: Beau Bond MD Dictated Date/time: 05/30/15 15:56 Electronically Signed by: Beau Bond MD 05/30/15 15:58 FINAL REPORT [facility] 2 views DX Hand 2 views DX NAME: KYRA KENNEDY DOB: 1955 SEX: F Ordering Physician: Steven Bran Hand AP lateral : May 30, 2015 11:58:00 AM. CLINICAL INDICATION: Pain from a fall pain after fall Comparison Examination: Left wrist radiographs from the same date. FINDINGS: 2 views of the left hand were performed. No evidence for acute fracture or dislocation of the left hand. Partially visualized comminuted, intra-articular distal radius fracture and ulnar styloid fracture. Soft tissues of the hand are unremarkable. No soft tissue gas or radiopaque foreign bodies. IMPRESSION: No evidence for acute fracture or dislocation of the left hand. SL: 05/30/2015 - - Read by: Toni Hodgson MD Dictated Date/time: 05/30/15 11:59 Electronically Signed by: Toni Hodgson MD 05/30/15 11:59 FINAL REPORT [facility] Wrist complete DX Wrist complete DX NAME: KYRA KENNEDY DOB: 1955 SEX: F Ordering Physician: Steven Bran Wrist complete ( min.3 views) : May 30, 2015 11:57:00 AM. CLINICAL INDICATION: Pain from a fall , dizziness Comparison Examination: None. FINDINGS: Three views of the left wrist demonstrate a comminuted, impacted distal radius fracture with dorsal tilt of the radial articular surface by approximately 35. There is up to 9 mm of dorsal displacement of the major fracture fragments. Mildly comminuted and displaced ulnar styloid fracture also seen. Diffuse soft tissue swelling of the wrist. IMPRESSION: Comminuted, intra-articular distal radius fracture and mildly comminuted ulnar styloid fracture. SL: 05/30/2015 - - Read by: Toni Hodgson MD Dictated Date/time: 05/30/15 11:57 Electronically Signed by: Toni Hodgson MD 05/30/15 11:58 FINAL REPORT [facility] Hip 2 views DX Hip 2 views DX NAME: KYRA KENNEDY DOB: 1955 SEX: F Ordering Physician: Steven Bran Hip min 2 views : May 30, 2015 11:05:00 AM. CLINICAL INDICATION: Pain from a fall fall after getting dizzy, left hip pain after the fall Comparison Examination: None. FINDINGS: Two views of the left hip are submitted for interpretation. No acute fracture or dislocation. No destructive osseous lesions. Normal bony alignment. Overlying soft tissues are unremarkable. If there is further concern, recommend follow-up radiographs or MRI for complete assessment. IMPRESSION: 1. No acute osseous injury of the left hip. SL: 05/30/2015 - - Read by: Toni Hodgson MD Dictated Date/time: 05/30/15 11:56 Electronically Signed by: Toni Hodgson MD 05/30/15 11:57 FINAL REPORT [facility] Elbow 3 views DX Elbow 3 views DX NAME: KYRA KENNEDY: 1955 SEX: F Ordering Physician: Steven Bran Elbow 3 views : May 30, 2015 11:57:00 AM. CLINICAL INDICATION: Pain from a fall pain after fall Comparison Examination: None. FINDINGS: Three views of the left elbow demonstrate a nondisplaced fracture of the coronoid process with associated hemarthrosis. No additional fractures. No elbow dislocation. IMPRESSION: Nondisplaced coronoid process fracture of the elbow. SL: 24 05/30/2015 - - Read by: Toni Hodgson MD Dictated Date/time: 05/30/15 11:58 Electronically Signed by: Toni Hodgson MD 05/30/15 11:58 FINAL REPORT [facility] Abdomen/Pelvis w/wo IV contrast CT Abdomen/Pelvis w/wo IV contrast CT Exam: CT Scan of the abdomen and pelvis with and without contrast Reason for Exam: Left lower quadrant abdominal pain. Blood in stool. Comparison Exam: Abdominal Ultrasound 12/12/2011 Technique: Multiple axial images were obtained of the abdomen and pelvis. 3.75mm slices were acquired before and after injection of 100 cc Omnipaque 300 IV. 50 cc Omnipaque 300 was also given as oral contrast. Reformatted sagittal and coronal images were obtained for additional diagnostic information. Total exam OIN=2622 mGy-cm. Discussion: Visualized portions of the lung bases are unremarkable. Multiple hypodensities are seen within the liver. Some represent cysts. Others are too small to characterize. Note that there were no cysts appreciated on Abdominal Ultrasound 2011. Portal venous system is patent. Gallbladder is unremarkable. No biliary duct dilation. Pancreas, spleen, and adrenal glands are within normal limits. Kidneys are unremarkable. No hydronephrosis or hydroureter. No dilated loops of bowel. The appendix is normal. Bladder is unremarkable. No appreciable lymphadenopathy or free fluid. No abnormal soft tissue mass seen within the large bowel. No acute bony abnormalities appreciated. Degenerative disc disease seen at the L4/L5 and L5/S1 levels. No evidence seen for abdominal aortic aneurysm or dissection. Impression: 1. Scattered diverticuli seen within the large bowel, without evidence to suggest acute diverticulitis. No abnormal soft tissue mass seen within the large bowel. 2. Multiple hypodensities are seen within the liver. Some represent cysts. Others are too small to characterize. 09/26/2014 - - Read by: Víctor Zaidi MD Dictated Date/time: 09/26/14 13:00 Electronically Signed by: Víctor Zaidi MD 09/26/14 13:07 FINAL REPORT [facility]IAH Juarez Vital Signs Vital Sign Value Date Comments Source Respitory Rate 18 05/30/2015 [facility] Systolic (mm Hg) 155 05/30/2015 [facility] Diastolic (mm Hg) 80 05/30/2015 [facility] Heart Rate 60 05/30/2015 [facility] Respitory Rate 18 05/30/2015 [facility] Systolic (mm Hg) 159 05/30/2015 [facility] Diastolic (mm Hg) 94 05/30/2015 [facility] Heart Rate 62 05/30/2015 [facility] Respitory Rate 18 05/30/2015 [facility] Systolic (mm Hg) 166 05/30/2015 [facility] Diastolic (mm Hg) 82 05/30/2015 [facility] Heart Rate 62 05/30/2015 [facility] Height 167.64 cm 05/30/2015 [facility] Temperature Oral (F) 98.8 F 05/30/2015 [facility] BMI Calculated 26.2 05/30/2015 [facility] Weight 73.636 05/30/2015 [facility] Encounters Location Location Details Encounter Type Encounter Number Reason For Visit Attending Provider ADM Date DC Date Status Source OD [id number] 789.04 - ABDMNAL PAIN LT ARISTEO RENE 12/12/2011 Active [facility] [id number] Leonardo Bello 09/26/2014 09/27/2014 ISIAH [facility] [id number] Anthony Katz 05/30/2015 05/30/2015 [facility] Procedures Procedure Code Date Perfomer Comments Source Hysterectomy [id number] [facility]
--- OUTSIDE RECORDS SUMMARY | 2018-07-12 09:29 | XMS REPORT | Summary of Care ---
Author Author [facility] Organization [facility] Address Unknown Phone Unavailable Encounter NELSY Sow(WAQAS) [id number] Date(s): 05/30/15 - 05/30/15 [facility] [address] [place] [address]- Discharge Diagnosis: Distal radius fracture, left Discharge Disposition: Home Attending Physician: Anthony Katz MD Vital Signs 1 2 3 Most recent to oldest [Reference Range]: 167.64 cm (05/30/15 10:56 AM) Height 98.8 DegF (05/30/15 10:56 AM) Temperature Oral [96.4-99.1 DegF] 155/80 mmHg *HI* (05/30/15 4:30 PM) 159/94 mmHg *HI* (05/30/15 4:00 PM) 166/82 mmHg *HI* (05/30/15 3:45 PM) Blood Pressure [90-140/60-90 mmHg] 18 BRMIN (05/30/15 4:30 PM) 18 BRMIN (05/30/15 4:00 PM) 18 BRMIN (05/30/15 3:45 PM) Respiratory Rate [14-20 BRMIN] 60 bpm (05/30/15 4:30 PM) 62 bpm (05/30/15 4:00 PM) 62 bpm (05/30/15 3:45 PM) Peripheral Pulse Rate [60-100 bpm] 73.636 kg (05/30/15 10:56 AM) Weight 26.2 m2 (05/30/15 10:56 AM) Body Mass Index Problem List Condition Effective Dates Status Health Status Informant Asthma(Confirmed) Resolved HTN - Resolved Hypertension(Confirm ed) Allergies, Adverse Reactions, Alerts Substance Reaction Severity Status penicillins Active Vioxx Active Medications ketAMINE 73.636 mg, 7.36 mL, Route: IVP, Drug form: INJ, ONCE, Dosing Weight 73.636, kg, Priority: STAT, Start date: 05/30/15 12:50:00, Stop date: 05/30/15 12:50:00 Notes: Total Volume in 3mL syringeStability 90 daysPer state nursing law ketamin e can only be given by a nurse if patient is intubated or being intubated (unles s the nurse is a CHIEF HUMAN RESOURCES OFFICER). Start Date: 05/30/15 Stop Date: 05/30/15 Status: Completed morphine Sulfate 4 mg, 1 mL, Route: IVP, Drug form: INJ, ONCE, Dosing Weight 73.636, kg, Priority : STAT, Start date: 05/30/15 11:04:00, Stop date: 05/30/15 11:04:00 Notes: (Same as:MORPhine Sulfate) Start Date: 05/30/15 Stop Date: 05/30/15 Status: Completed morphine Sulfate 6 mg, 0.6 mL, Route: IV, Drug form: SOLN, ONCE, Dosing Weight 73.636, kg, Start date: 05/30/15 12:14:00, Stop date: 05/30/15 12:14:00 Notes: (Same as: MORPhine Sulfate) Start Date: 05/30/15 Stop Date: 05/30/15 Status: Completed morphine Sulfate 6 mg, Route: IVP, Drug form: INJ, ONCE, Dosing Weight 73.636, kg, Priority: STAT , Start date: 05/30/15 11:57:00, Stop date: 05/30/15 11:57:00 Start Date: 05/30/15 Stop Date: 05/30/15 Status: Discontinued [place] 5/325 oral tablet 1 tab, Route: PO, Drug Form: TAB, Dosing Weight 73.636, kg, ONCE, STAT, Start da te: 05/30/15 15:27:00, Stop date: 05/30/15 15:27:00 Notes: (Same as: [place] 325/5) Do not exceed 4gm/day of acetaminophen. Start Date: 05/30/15 Stop Date: 05/30/15 Status: Completed propofol 73.636 mg, 7.36 mL, Route: IVP, Drug form: INJ, ONCE, Dosing Weight 73.636, kg, Priority: STAT, Start date: 05/30/15 12:50:00, Stop date: 05/30/15 12:50:00 Notes: If Diprivan - change bottle & tubing every 12 hrPer state nursing law propofol can only be given by a nurse if patient is intubated or being intubated (unless the nurse is a CHIEF HUMAN RESOURCES OFFICER). Same as: Diprivan Start Date: 05/30/15 Stop Date: 05/30/15 Status: Completed tramadol 50 mg oral tablet 50 mg=1 tab, PO, BID, X 15 day, # 30 tab, 0 Refill(s) Start Date: 05/30/15 Stop Date: 06/14/15 Status: Ordered Tylenol with Codeine #3 oral tablet 1 - 2 tab, PO, Q4H, PRN Pain, X 3 day, # 20 tab, 0 Refill(s) Start Date: 05/30/15 Stop Date: 06/02/15 Status: Ordered Zofran 4 mg, 2 mL, Route: IVP, Drug form: INJ, ONCE, Dosing Weight 73.636, kg, Priority : STAT, Start date: 05/30/15 11:04:00, Stop date: 05/30/15 11:04:00 Notes: (Same as: Zofran) MEDICATION WASTE Product Size: 4 mgProduct Was ming: ___ mg Start Date: 05/30/15 Stop Date: 05/30/15 Status: Completed Results ELECTROLYTES Most recent to 1 oldest [Reference Range]: Sodium Lvl [135-145 140 mEq/L mEq/L] (05/30/15 11:16 AM) Potassium Lvl 4.3 mEq/L [3.5-5.1 mEq/L] (05/30/15 11:16 AM) Chloride Lvl [95-109 105 mEq/L mEq/L] (05/30/15 11:16 AM) CO2 [24-32 mEq/L] 29 mEq/L (05/30/15 11:16 AM) AGAP [10.0-20.0 10.3 mEq/L mEq/L] (05/30/15 11:16 AM) CHEM PANEL Most recent to 1 oldest [Reference Range]: Creatinine Lvl 0.61 mg/dL [0.50-1.40 mg/dL] (05/30/15 11:16 AM) eGFR 99 mL/min/1.73m2 1 *NA* (05/30/15:16 AM) BUN [7-22 mg/dL] 16 mg/dL (05/30/15 11:16 AM) Glucose Lvl [70-99 117 mg/dL mg/dL] *HI* (05/30/15 11:16 AM) Calcium Lvl 8.5 mg/dL [8.5-10.5 mg/dL] (05/30/15 11:16 AM) 1Result Comment: The eGFR is calculated using the [...] from the National Kidney Disease Education Program ( NKDEP) which additionally recommends that when the eGFR is used in patients with extremes of body mass index for purposes of drug dosing, the eGFR should be mul tiplied by the estimated BMI. HEMATOLOGY Most recent to 1 oldest [Reference Range]: WBC [3.7-10.4 K/CMM] 9.4 K/CMM (05/30/15 11:16 AM) RBC [4.20-5.40 4.49 M/CMM M/CMM] (05/30/15 11:16 AM) Hgb [12.0-16.0 g/dL] 12.1 g/dL (05/30/15 11:16 AM) Hct [36.0-48.0 %] 38.1 % (05/30/15:16 AM) MCV [80.0-98.0 fL] 84.7 fL (05/30/15 11:16 AM) MCH [27.0-31.0 pg] 27.0 pg (05/30/15 11:16 AM) MCHC [32.0-36.0 31.9 g/dL g/dL] *LOW* (12/19/15 11:16 AM) RDW [11.5-14.5 %] 14.5 % (05/30/15 11:16 AM) Platelet [133-450 249 K/CMM K/CMM] (05/30/15 11:16 AM) MPV [7.4-10.4 fL] 9.2 fL (05/30/15 11:16 AM) Segs [45.0-75.0 %] 71.1 % (05/30/15 11:16 AM) Lymphocytes 20.3 % [20.0-40.0 %] (05/30/15 11:16 AM) Monocytes [2.0-12.0 6.3 % %] (05/30/15 11:16 AM) Eosinophils [0.0-4.0 1.7 % %] (05/30/15 11:16 AM) Basophils [0.0-1.0 0.6 % %] (05/30/15 11:16 AM) Segs-Bands # 6.7 K/CMM [1.5-8.1 K/CMM] (05/30/15 11:16 AM) Lymphocytes # 1.9 K/CMM [1.0-5.5 K/CMM] (05/30/15 11:16 AM) Monocytes # [0.0-0.8 0.6 K/CMM K/CMM] (05/30/15 11:16 AM) Eosinophils # 0.2 K/CMM [0.0-0.5 K/CMM] (05/30/15 11:16 AM) Basophils # [0.0-0.2 0.1 K/CMM K/CMM] (05/30/15 11:16 AM) Immunizations No data available for this section Procedures Procedure Date Related Diagnosis Body Site Hysterectomy Social History Social History Type Response Smoking Status Never smoker; Exposure to Tobacco Smoke None; Cigarette Smoking Last 365 Days No; Reg Smoking Cessation Counseling No Assessment and Plan No data available for this section
[2018-07-12 12:30] VITALS: BP 121/74
== END | disposition home or self-care (01) ==
LOC: OR 09:26
PROVIDERS: ATTEND Internal Medicine
DX: K58.9 Irritable bowel syndrome, unspecified (principal); K64.0 First degree hemorrhoids; I69.319 Unspecified symptoms and signs involving cognitive functions following cerebral infarction; I10 Essential (primary) hypertension; J45.909 Unspecified asthma, uncomplicated; Z88.0 Allergy status to penicillin; Z88.2 Allergy status to sulfonamides; Z88.6 Allergy status to analgesic agent; Z88.8 Allergy status to other drugs, medicaments and biological substances; Z01.810 Encounter for preprocedural cardiovascular examination; Z01.812 Encounter for preprocedural laboratory examination; Z79.82 Long term (current) use of aspirin; Z68.31 Body mass index [BMI] 31.0-31.9, adult; Z80.0 Family history of malignant neoplasm of digestive organs
CPT/HCPCS: 36415; 45378; 85025; 93005; J2250; J2704